=== PATIENT | female | born 1980 | race Caucasian/White ===

== ENCOUNTER 2021-09-02 08:20 | Emergency (ER) | payer BC, MEDICAID ==
[~2021-09-02] VITALS: Ht 162.6 cm; Wt 65.9 kg
[~2021-09-02 08:20] MED LIST: IBUP-1986 PO; METH-360 PO
[2021-09-02 08:25] VITALS: BP 171/102
[2021-09-02] MEDS ORDERED: TETanus/Pertussis (Acell)/Diphther VAC/PF (Tdap-Adult) 0.5ml syringe IMVAC ONE (08:35)
--- NOTE | 2021-09-02 08:38 | NUR ---
Patient to CT
[2021-09-02] MEDS ORDERED: normal saline 1000ML IV soln IVB ONE (08:40)
[2021-09-02] MEDS ORDERED: ondansetron/PF 4mg/2ml inj IV ONE (08:40)
[2021-09-02] MEDS ORDERED: LIDOcaine 1% W/epiNEPHrine 1:200,000 10ml vial ONE (09:00)
[2021-09-02 09:17] LABS: BASOPHILS % (AUTO) 0.2 % (0-1); EOSINOPHILS % (AUTO) 0.2 % (0-6); HEMATOCRIT 40.8 % (35.0-45.0); HEMOGLOBIN 13.8 g/dl (12.0-16.0); LYMPHOCYTES # (AUTO) 2.1 X10'3 (1.1-4.8); LYMPHOCYTES % (AUTO) 13.5 % (21-51); MEAN CORPUSCULAR HEMOGLOBIN 32.9 PG (27.0-31.0); MEAN CORPUSCULAR HGB CONC 33.8 g/dL (33.0-36.5); MEAN CORPUSCULAR VOLUME 97.2 FL (78-98); MEAN PLATELET VOLUME 7.2 FL (7.4-10.4); MONOCYTES # (AUTO) 0.8 X10'3 (0-0.9); MONOCYTES % (AUTO) 5.2 % (2-12); NEUTROPHILS # (AUTO) 12.2 X10'3 (1.8-7.7); NEUTROPHILS % (AUTO) 80.9 % (42-75); PLATELET COUNT 393 X10'3 (140-440); RED CELL DISTRIBUTION WIDTH 13.2 % (11.5-14.5); WHITE BLOOD COUNT 15.2 X10'3 (4.5-11.0)
[2021-09-02 09:26] LABS: ALANINE AMINOTRANSFERASE 25 U/L (12-78); ALBUMIN/GLOBULIN RATIO 1.3 (1.1-1.5); ALKALINE PHOSPHATASE 57 IU/L (46-116); ANION GAP 13 (8-16); ASPARTATE AMINO TRANSFERASE 19 U/L (10-37); BILIRUBIN,TOTAL 0.2 MG/DL (0.1-1.0); BLOOD UREA NITROGEN 6 MG/DL (7-18); CALCIUM 8.2 MG/DL (8.5-10.1); CHLORIDE 110 MMOL/L (99-107); ETHANOL 0.048 GM/DL (0.0-0.010); GLUCOSE 92 MG/DL (70-104); POTASSIUM 3.7 MMOL/L (3.5-5.1); SODIUM 147 MMOL/L (135-145); TOTAL CARBON DIOXIDE 23.8 MMOL/L (24-32); eGFR > 90 ML/MIN
[2021-09-02] MEDS ORDERED: CEPH250T PO (09:31)
[2021-09-02] MEDS ORDERED: HYDR-3965 PO (09:32)
--- NOTE | 2021-09-02 10:04 | NUR ---
[facility] police
== END 2021-09-02 10:20 | disposition home or self-care (01) ==
LOC: ER 08:21
DX: S02.2XXA Fracture of nasal bones, initial encounter for closed fracture (principal); S01.81XA Laceration without foreign body of other part of head, initial encounter; S63.502A Unspecified sprain of left wrist, initial encounter; M25.532 Pain in left wrist; R51.9 Headache, unspecified; F17.200 Nicotine dependence, unspecified, uncomplicated; Z20.3 Contact with and (suspected) exposure to rabies; Z79.2 Long term (current) use of antibiotics; Z79.899 Other long term (current) drug therapy; Y08.89XA Assault by other specified means, initial encounter; Y93.89 Activity, other specified; Y92.89 Other specified places as the place of occurrence of the external cause; Y99.8 Other external cause status
CPT/HCPCS: 12013; 36415; 70450; 70486; 73110; 80053; 80320; 85025; 90471; 90715; 96374; 99285; J2405; J3490; J7030

== ENCOUNTER 2022-02-27 17:32 | Emergency (ER) | payer BC, MEDICAID ==
[~2022-02-27] VITALS: Ht 165.1 cm; Wt 63.6 kg
[2022-02-27 18:07] VITALS: BP 114/82
[2022-02-27] MEDS ORDERED: ibuprofen tablet 400 MG TABLET PO ONE (18:15)
== END 2022-02-27 18:48 | disposition home or self-care (01) ==
LOC: ER 17:35
DX: S93.491A Sprain of other ligament of right ankle, initial encounter (principal); W01.0XXA Fall on same level from slipping, tripping and stumbling without subsequent striking against object, initial encounter; Y93.89 Activity, other specified; Y92.89 Other specified places as the place of occurrence of the external cause; Y99.8 Other external cause status
CPT/HCPCS: 73590; 99283

== ENCOUNTER 2022-12-29 17:15 | Emergency (ER) | payer BC, MEDICAID ==
[~2022-12-29] VITALS: Ht 162.6 cm; Wt 63.6 kg
[2022-12-29 17:34] VITALS: BP 139/95
== END 2022-12-30 00:26 | disposition home or self-care (01) ==
LOC: ER 17:16
DX: S30.0XXA Contusion of lower back and pelvis, initial encounter (principal); F17.200 Nicotine dependence, unspecified, uncomplicated; Z79.899 Other long term (current) drug therapy; W18.39XA Other fall on same level, initial encounter; Y93.89 Activity, other specified; Y92.89 Other specified places as the place of occurrence of the external cause; Y99.8 Other external cause status
CPT/HCPCS: 72170; 99284

== ENCOUNTER 2024-09-27 23:40 | Emergency (ER) | payer BC, MEDICAID ==
[~2024-09-27] VITALS: Ht 165.1 cm; Wt 60.9 kg
[2024-09-27 23:41] VITALS: BP 147/98; PULSE 99; RESP 16; TEMP 98; O2SAT 99
[2024-09-28] MEDS ORDERED: CEPH-585 PO (02:18)
== END 2024-09-28 00:45 | disposition left against medical advice (07) ==
LOC: ER 23:40
DX: R00.0 Tachycardia, unspecified (principal); F41.9 Anxiety disorder, unspecified; Z53.21 Procedure and treatment not carried out due to patient leaving prior to being seen by health care provider

== ENCOUNTER 2024-09-28 01:19 | Emergency (ER) | payer BC, MEDICAID ==
[~2024-09-28] VITALS: Ht 165.1 cm; Wt 61.5 kg
[2024-09-28 01:21] VITALS: BP 129/93; PULSE 86; RESP 14; O2SAT 98
[2024-09-28 02:00] LABS: BILIRUBIN,URINE NEGATIVE (Neg); CLARITY,URINE CLOUDY (Clear); COLOR,URINE YELLOW (Yellow); GLUCOSE, URINE NEGATIVE (Neg); KETONES,URINE NEGATIVE (Neg); LEUKOCYTE ESTERASE ,URINE SMALL (Neg); NITRITES, URINE NEGATIVE (Neg); OCCULT BLOOD,URINE NEGATIVE (Neg); PH,URINE 6.5 (4.8-8.0); PROTEIN,URINE NEGATIVE (Neg)
[2024-09-28 02:01] LABS: URINE HCG NEGATIVE (NEG)
[2024-09-28 02:03] LABS: UA COLLECTION TYPE CLN CATCH MIDSTREAM
[2024-09-28 02:08] LABS: BACTERIA,URINE 1+ /HPF (Neg); RBC,URINE 0-2 /HPF (0-2); WBC,URINE 30-50 /HPF (0-4)
[2024-09-28 02:09] LABS: SQUAMOUS EPITHELIAL CELL,UR NONE SEEN /LPF (FEW)
[2024-09-28] MEDS ORDERED: CEPH-585 PO (02:18)
[2024-09-28 02:21] LABS: URINE AMPHETAMINE SCREEN NEGATIVE (Neg); URINE BARBITUATE SCREEN NEGATIVE (Neg); URINE BENZODIAZEPINES SCREEN NEGATIVE (Neg); URINE CANNABINOID SCREEN NEGATIVE (Neg); URINE COCAINE SCREEN NEGATIVE (Neg); URINE METHADONE SCREEN NEGATIVE (Neg); URINE OPIATE SCREEN NEGATIVE (Neg); URINE PHENCYCLIDINE SCREEN NEGATIVE (Neg)
[2024-09-28 02:26] VITALS: TEMP 98.1
[2024-09-28] MEDS: cephalexin 250mg capsule PO ONE (02:31)
[2024-09-28] MEDS: ibuprofen tablet 400 MG TABLET PO ONE (02:31)
[2024-09-28] MEDS: ondansetron 4mg rapidly disintigrating tab PO ONE (02:31)
== END 2024-09-28 02:37 | disposition home or self-care (01) ==
LOC: ER 01:20
DX: R00.2 Palpitations (principal); N39.0 Urinary tract infection, site not specified; F41.9 Anxiety disorder, unspecified; F17.210 Nicotine dependence, cigarettes, uncomplicated
CPT/HCPCS: 80305; 81001; 81025; 87088; 93005; 99284